=== PATIENT | female | born 1985 | race Caucasian/White ===

== ENCOUNTER 2017-08-21 20:35 | Emergency (ER) | payer OTHER ==
[~2017-08-21] VITALS: Ht 175.3 cm; Wt 83.9 kg
[~2017-08-21 20:35] MED LIST: ACETAMINOPHEN-1 EAC1 PO; AUGMENTIN 500-1 EACH PO; BACTRIM DS TAB1 EACH PO; BACTROBAN15 GM TP; IBUPROFEN 600600 M1 PO; LOW-OGESTREL1 EACH PO; NAPROSYN500 MG PO; NORCO 5-325 TA1 EACH PO; VENTOLIN HFA 1818 GM INH
[2017-08-21] MEDS ORDERED: ACETAMINOPHEN-1 EAC1 PO (20:42)
[2017-08-21] MEDS ORDERED: NORCO 5-325 TA1 EACH PO (21:20)
[2017-08-21] MEDS ORDERED: BACTRIM DS TAB1 EACH PO (21:21)
[2017-08-21 22:06] VITALS: BP 118/81
== END 2017-08-21 22:09 | disposition home or self-care (01) ==
LOC: ER 20:35
DX: L02.611 Cutaneous abscess of right foot (principal); F17.210 Nicotine dependence, cigarettes, uncomplicated; Z88.8 Allergy status to other drugs, medicaments and biological substances